=== PATIENT | female | born 1950 | race Asian ===

== ENCOUNTER 2017-03-16 13:00 | Day surgery (SDC) | payer OTHER ==
[2017-03-16 13:59] LABS: MCHC 28.7 g/dl (32.0-36.0); MEAN CELL VOLUME 62.4 fl (80-96); MEAN PLT VOLUME 9.7 fl (7.5-11.1); PLATELET COUNT 145 K/MM3 (134-434); RDW 30.5 % (11.6-15.6); WHITE BLOOD COUNT 6.1 K/mm3 (4.0-10.0)
[2017-03-16 14:00] LABS: MCH 17.9 pg (25.7-33.7)
[2017-03-16 14:11] LABS: ALBUMIN 4.2 g/dl (3.4-5.0); ANION GAP 10 (8-16); BILIRUBIN,TOTAL 1.9 mg/dL (0.2-1.0); CALCIUM 8.8 mg/dL (8.5-10.1); CO2 25 mmol/L (21-32); CREATININE 0.8 mg/dL (0.55-1.02); GLUCOSE,RANDOM 90 mg/dL (74-106); SGPT/ALT 17 U/L (12-78); TOT PROT 7.1 g/dl (6.4-8.2)
[2017-03-16 14:12] LABS: ALK PHOS 64 U/L (45-117)
[2017-03-16 14:20] LABS: SGOT/AST 16 U/L (15-37)
[2017-03-16 14:38] LABS: INR 1.05 (0.82-1.09); PROTHROMBIN TIME (PATIENT) 11.6 SEC (9.98-11.88)
[2017-03-16 14:40] LABS: ACTIVATED PTT 30.2 SECONDS (26.9-34.4)
--- NOTE | 2017-03-16 15:45 | EKG ---
Test Reason : Blood Pressure : / mmHG Vent. Rate : 068 BPM Atrial Rate : 068 BPM P-R Int : 172 ms QRS Dur : 092 ms QT Int : 418 ms P-R-T Axes : 040 074 058 degrees QTc Int : 444 ms NORMAL SINUS RHYTHM NORMAL ECG NO PREVIOUS ECGS AVAILABLE Confirmed by BRYAN SEWELL, KANDI (2013) on 03/16/2017 3:44:49 PM Referred By: Marvel Jimenez Confirmed By:KANDI ADAMS MD
[2017-03-16] MEDS ORDERED: PROPOFOL 20 ML ONE (16:29)
[2017-03-16] MEDS ORDERED: MIDAZOLAM HCL 2 MG/2 ML SINGLE DOSE VIAL ONE (16:29)
--- NOTE | 2017-03-16 16:34 | HP ---
Past Medical History - Primary Care Physician PCP:: Marvel Jimenez - Admission Chief Complaint: post menopausal vaginal bleeding,submucous leiomyoma of uterus , anemia History of Present Illness: 66 yo f with hx of recent PMB, hx of submucus leiomyoma of uterus admitted for hysteroascopy, D&C , possible vaginal myomectomy. procedure risks discussed in detail, all questions answered History Source: Patient Limitations to Obtaining History: No Limitations - Past Medical History Renal/: Yes: Other (over active bladder) Heme/Onc: Yes: Other (thalasemia) - Past Surgical History Hx Myomectomy: No Hx Transabdominal Cerclage: No - Smoking History Smoking history: Never smoked - Alcohol/Substance Use Hx Alcohol Use: No - Social History History of Recent Travel: No Home Medications - Allergies Allergies/Adverse Reactions: Allergies Allergy/AdvReac Type Severity Reaction Status Date / Time clindamycin Allergy Severe Rash Verified 03/16/17 13:44 Penicillins Allergy Severe Swelling Verified 03/16/17 13:44 gentamicin Allergy Unknown Verified 03/16/17 13:44 Sulfa (Sulfonamide AdvReac Verified 03/16/17 13:44 Antibiotics) narcotics AdvReac Intermediate Vomiting Uncoded 03/16/17 13:46 - Home Medications Home Medications: Ambulatory Orders Folic Acid 1 mg PO DAILY 03/16/17 Levomefolate/B6/B12/Algal Oil [Metanx Capsule] 1 each PO BID 03/16/17 Mirabegron [Myrbetriq] 25 mg PO DAILY 03/16/17 Risedronate Sodium [Actonel (Monthly)] 150 mg PO Q30D 03/16/17 Vitamin E 400 unit PO DAILY 03/16/17 Review of Systems - Review of Systems Constitutional: reports: No Symptoms Eyes: reports: No Symptoms HENT: reports: No Symptoms Neck: reports: No Symptoms Cardiovascular: reports: No Symptoms Respiratory: reports: No Symptoms Gastrointestinal: reports: No Symptoms Genitourinary: reports: No Symptoms 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 Vital Signs: Vital Signs Temperature 98.1 F 03/16/17 14:15 Pulse Rate 72 03/16/17 14:15 Respiratory Rate 18 03/16/17 14:15 Blood Pressure 121/62 03/16/17 14:15 O2 Sat by Pulse Oximetry (%) 98 03/16/17 14:15 Constitutional: Yes: Well Nourished, No Distress, Calm Eyes: Yes: WNL, Conjunctiva Clear, EOM Intact HENT: Yes: WNL, Atraumatic, Normocephalic Neck: Yes: WNL, Supple, Trachea Midline Cardiovascular: Yes: WNL, Regular Rate and Rhythm Respiratory: Yes: WNL, Regular, CTA Bilaterally Gastrointestinal: Yes: WNL ...Rectal Exam: Yes: WNL Renal/: Yes: WNL Internal Exam Deferred: No Vaginal Exam: Yes: Normal Cervix: Yes: Normal Uterus: Yes: Enlarged, Mass Adnexa: Not Palpable: Left, Right Breast(s): Yes: WNL Musculoskeletal: Yes: WNL Extremities: Yes: WNL Edema: No Integumentary: Yes: WNL Neurological: Yes: WNL, Alert, Oriented ...Motor Strength: WNL Psychiatric: Yes: WNL, Alert, Oriented Labs: CBC, BMP 03/16/17 13:18 03/16/17 13:18 Problem List - Problem (1) Postmenopausal bleeding Code(s): N95.0 - POSTMENOPAUSAL BLEEDING (2) Submucous and subserous leiomyoma of uterus Code(s): D25.0 - SUBMUCOUS LEIOMYOMA OF UTERUS D25.2 - SUBSEROSAL LEIOMYOMA OF UTERUS (3) Anemia Code(s): D64.9 - ANEMIA, UNSPECIFIED Assessment/Plan hysteroscopy D&C , possible myomectomy
[2017-03-16] MEDS ORDERED: LIDOCAINE HCL 2% 100 MG/5 ML DISP.SYRIN ONE (16:40)
[2017-03-16] MEDS ORDERED: LEVOFLOXACIN 500 MG IVPB 100 ML IVPB ONE (16:40)
[2017-03-16] MEDS ORDERED: LEVOFLOXACIN 500 MG PREMIX BAG IVPB ONE (16:41)
[2017-03-16] MEDS ORDERED: DEXAMETHASONE SOD PHOSPHATE 4 MG/1 ML VIAL ONE (16:42)
[2017-03-16 16:46] LABS: ANISOCYTOSIS 3+; HYPOCHROMIA 3+; MICROCYTOSIS 2+; OVALOCYTES 1+; PLATELET ESTIMATE DECREASED (NORMAL)
[2017-03-16] MEDS ORDERED: KETOROLAC TROMETHAMINE 30 MG/1 ML VIAL ONE (16:53)
[2017-03-16] MEDS ORDERED: PROMETHAZINE HCL 25 MG/1 ML VIAL IVPUSH PRN (17:07)
[2017-03-16] MEDS ORDERED: ACETAMINOPHEN 1000 MG/100 ML VIAL (NON FORMULARY) IVPB ONE (17:07)
[2017-03-16] MEDS ORDERED: ONDANSETRON 4 MG/2 ML VIAL IVPUSH PRN (17:07)
[2017-03-16] MEDS ORDERED: LACTATED RINGERS SOLUTION 1,000 ML IV SCH (17:15)
[2017-03-16] MEDS ORDERED: oxyCODONE HCL 5 MG TABLET PO PRN (17:27)
[2017-03-16] MEDS ORDERED: ONDANSETRON 4 MG/2 ML VIAL IVPB PRN (17:27)
[2017-03-16] MEDS ORDERED: IBUPROFEN 800 MG/8 ML IJ IVPB PRN (17:27)
[2017-03-16] MEDS ORDERED: IBUPROFEN 600 MG TABLET (FP) PO PRN (17:27)
[2017-03-16] MEDS ORDERED: ELECTROLYTE-148 SOLN 1,000 ML IV SCH (17:30)
[2017-03-16 17:47] VITALS: TEMP 98.5
[2017-03-16 19:04] VITALS: BP 144/63; PULSE 65
--- NOTE | 2017-03-19 20:33 | OP ---
DATE OF OPERATION: 03/16/2017 PREOPERATIVE DIAGNOSES: Postmenopausal bleeding, submucous leiomyoma of the uterus, and anemia. POSTOPERATIVE DIAGNOSES: Postmenopausal bleeding, submucous leiomyoma of the uterus, and anemia. Pyometrium. SURGEON: Marvel Jimenez MD ANESTHESIA: General. ANESTHESIOLOGIST: Alvaro Luis MD ESTIMATED BLOOD LOSS: 50 mL DESCRIPTION OF OPERATION: Patient was taken to the operating room, and under adequate general anesthesia, examination under anesthesia revealed external genitalia to be normal. Vagina was atrophic. Cervix was no gross lesion. Uterus was enlarged, approximately 12 weeks size. Adnexa: No masses were palpable. Then, with a weighted speculum in the vagina, anterior lip of the cervix was grasped with single-tooth tenaculum. Cervix was lightly dilated with the Hegar dilators, and then, pus was seen coming out of the uterine cavity. At this time, hysteroscope was introduced. There was a large, necrotic submucous myoma with a wide base seen in the lower uterine segment. It was difficult to see the rest of endometrium because of the cavity being occupied with a submucous myoma and inflammatory changes. With difficulty, cornual region of the uterus was identified, but endometrium overall appeared to be atrophic. Then, more pus was drained from the uterus, and then, cervix was more dilated with Hegar dilators. Uterine cavity was gently curetted for specimen. The patient tolerated the procedure well, left the OR in good condition. Levaquin was given intraoperatively, and the patient will be discharged home on p.o. Levaquin, will follow up. MARVEL JIMENEZ M.D. [id number]
--- NOTE | 2017-03-20 12:42 | PATH ---
Surgical Pathology Report Patient Name: BE MARINO [facility]. Rec. #: [id number] /Age/Gender: 1950 (Age: 66) / F Account: [id number] Location: [facility] SURGICAL Taken: 03/16/2017 Received: 03/17/2017 Reported: 03/20/2017 Physicians: Marvel Jimenez M.D. Specimen(s) Received ENDOMETRIAL CURETTINGS Clinical History Fibroid uterus, postmenopausal bleeding Final Diagnosis ENDOMETRIUM, CURETTAGE: SCANT FRAGMENTS OF INACTIVE APPEARING ENDOMETRIUM WITH EVIDENCE OF ACTIVE CHRONIC ENDOMETRITIS AND BACKGROUND NECROINFLAMMATORY DEBRIS. FRAGMENTS OF BENIGN ENDOCERVICAL TISSUE. FRAGMENTS OF BENIGN SQUAMOUS EPITHELIUM. Comment: Correlations with hysteroscopic findings are suggested. Electronically Signed Diego Sosa M.D. Gross Description Received in formalin labeled "endometrial curetting" is a 2.5 x 2.3 x 0.3 cm aggregate of rai-brown soft tissue fragments. The formalin is filtered and the specimen is entirely submitted in one cassette. 03/17/2017 [facility]03/17/2017
== END 2017-03-16 19:00 | disposition home or self-care (01) ==
LOC: JASU-SURG 13:00
PROVIDERS: ATTEND Obstetrics & Gynecology
PROC: 0UDB8ZX Extraction of Endometrium, Via Natural or Artificial Opening Endoscopic, Diagnostic (ICD-10-PCS; principal; 2017-03-16 14:00)
DX: N95.0 Postmenopausal bleeding (principal); D25.0 Submucous leiomyoma of uterus; N71.9 Inflammatory disease of uterus, unspecified
CPT/HCPCS: 36415; 71020-TC; 80053; 85025; 85610; 85730; 87070; 87075; 87186; 87205; 88305-TC; 93005; 93010; 94760